=== PATIENT | female | born 1940 ===

== ENCOUNTER 2020-01-29 10:35 | Outpatient (NON) | payer MEDICARE, OTHER, SELFPAY ==
[2020-01-31 05:35] LABS: Pan-SARS RNA: NEGATIVE (NEGATIVE); SARS-CoV-2 RNA: NEGATIVE (NEGATIVE)
== END 2020-01-29 10:36 ==
PROVIDERS: Visit Provider Family Medicine
DX: R09.89 Other specified symptoms and signs involving the circulatory and respiratory systems (principal); Z20.828 Contact with and (suspected) exposure to other viral communicable diseases
CPT/HCPCS: 87635; C9803; U0002